=== PATIENT | male | born 1965 | race Caucasian/White ===

== ENCOUNTER 2022-05-24 18:14 | Emergency (ER) | payer OTHER ==
[2022-05-24 18:30] LABS: #Monocytes 0.8 10x3/uL (0.0-1.1); #Neutrophils 10.5 10x3/uL (1.5-8.4); %Basophils 0.2 % (0.0-2.0); %Eosinophils 0.3 % (0.0-6.0); %Lymphocytes 4.1 % (18.0-47.0); %Monocytes 6.5 % (0.0-10.0); %Neutrophils 88.4 % (40.0-75.0); Hemoglobin 12.7 g/dL (13.5-17.5); Mean Corpuscular Hemoglobin 28.5 pg (27.0-33.0); Mean Corpuscular Volume 83.6 fl (81.2-95.1); Mean Platelet Volume 10.2 fl (7.4-10.4); Platelet Count 298 10x3/uL (150-450); RBC Distribution Width 13.8 % (11.5-14.5); Red Blood Cell (RBC) Count 4.46 10x6/uL (4.32-5.72); White Blood Cell (WBC) Count 11.8 10x3/uL (3.5-10.5)
[2022-05-24 18:45] LABS: ALT (SGPT) 36 U/L (8-55); AST (SGOT) 25 U/L (5-34); Albumin 4.2 g/dL (3.5-5.0); Alkaline Phosphatase 92 U/L (40-110); Anion Gap 13 mmol/L (10-20); BUN (Urea Nitrogen) 10 mg/dL (8.4-25.7); Bilirubin, Total 0.6 mg/dL (0.2-1.2); Calc. Creatinine Clearance 0 mL/min (70-130); Calcium 9.3 mg/dL (7.8-10.44); Carbon Dioxide 24 mmol/L (22-29); Chloride 102 mmol/L (98-107); Estimated GFR 91; Globulin 3.3 g/dL (2.4-3.5); Glucose 107 mg/dL (70-105); Protein, Total 7.5 g/dL (6.0-8.3); Sodium 135 mmol/L (136-145)
[2022-05-24] MEDS ORDERED: Acetaminophen 500 MG TAB ONE (19:14)
[2022-05-24] MEDS ORDERED: Cefepime 2 GM VIAL ONE (19:14)
[2022-05-24 19:42] LABS: SARS-CoV-2 NAA Rapid Test Not Detected (NotDetected)
[2022-05-25] MEDS ORDERED: Carvedilol 6.25 MG TAB PO SCH (00:30)
[2022-05-25] MEDS ORDERED: Ketorolac Tromethamine 30 MG/ML VIAL ONE (01:11)
== END 2022-05-25 01:28 | disposition short-term general hospital (02) ==
LOC: CSHERS 18:14 → EEVIPCON 18:14 → CSHERS 05-25 01:28
DX: A41.9 Sepsis, unspecified organism (principal); L03.116 Cellulitis of left lower limb; K21.9 Gastro-esophageal reflux disease without esophagitis; I10 Essential (primary) hypertension
CPT/HCPCS: 36415; 80053; 83605; 84484; 85025; 87040; 93005; 96361; 96365; 96375; J0692; J1885; J3370; U0002

== ENCOUNTER 2024-06-30 20:27 | Emergency (ER) | payer OTHER ==
[2024-06-30] MEDS ORDERED: Aspirin Chewable 81 MG TAB ONE (21:00)
[2024-06-30] MEDS ORDERED: Milk Of Magnesia 30 ML UDCUP ONE (21:00)
[2024-06-30 21:42] LABS: #Basophils 0.02 10x3/uL (0.0-0.2); #Eosinphils 0.01 10x3/uL (0.0-0.5); #Monocytes 1.22 10x3/uL (0.0-1.1); #Neutrophils 9.91 10x3/uL (1.5-8.4); %Basophils 0.2 % (0.0-2.0); %Eosinophils 0.1 % (0.0-6.0); %Monocytes 9.7 % (0.0-10.0); %Neutrophils 79.1 % (40.0-75.0); Hematocrit 44.4 % (38.8-50.0); Hemoglobin 15.1 g/dL (13.5-17.5); Mean Corpuscular Hemoglobin 29.2 pg (27.0-33.0); Mean Corpuscular Volume 85.9 fL (81.2-95.1); Mean Platelet Volume 9.9 fL (7.4-10.4); Platelet Count 423 10x3/uL (150-450); RBC Distribution Width 12.5 % (11.5-14.5); Red Blood Cell (RBC) Count 5.17 10x6/uL (4.32-5.72); White Blood Cell (WBC) Count 12.5 10x3/uL (3.5-10.5)
[2024-06-30 21:50] LABS: ALT (SGPT) 20 U/L (8-55); AST (SGOT) 17 U/L (5-34); Albumin 4.1 g/dL (3.5-5.0); Alkaline Phosphatase 85 U/L (40-110); Anion Gap 15 mmol/L (10-20); BUN (Urea Nitrogen) 15 mg/dL (8.4-25.7); Bilirubin, Total 0.9 mg/dL (0.2-1.2); Calc. Creatinine Clearance 0 mL/min (70-130); Carbon Dioxide 22 mmol/L (22-29); Chloride 98 mmol/L (98-107); Estimated GFR 56; Globulin 3.8 g/dL (2.4-3.5); Glucose 116 mg/dL (70-105); Lipase 20 U/L (8-78); Potassium 4.9 mmol/L (3.5-5.1); Protein, Total 7.9 g/dL (6.0-8.3); Sodium 130 mmol/L (136-145)
[2024-06-30 21:56] LABS: Troponin I 0.015 ng/mL (< 0.028)
== END 2024-06-30 23:30 ==
LOC: CSHERS 20:27
DX: K21.9 Gastro-esophageal reflux disease without esophagitis (principal); I10 Essential (primary) hypertension; Z79.899 Other long term (current) drug therapy
CPT/HCPCS: 36415; 71045; 80053; 83690; 84484; 85025; 93005

== ENCOUNTER 2024-09-28 09:08 | Emergency (ER) | payer OTHER ==
[2024-09-28] MEDS ORDERED: Midazolam HCl 2 mg/2 ml Vial ONE (09:16)
[2024-09-28] MEDS ORDERED: Famotidine/PF 20 mg/2ml Vial ONE (09:16)
[2024-09-28] MEDS ORDERED: Ketorolac Tromethamine 30 MG (1 mL) VIAL ONE (09:16)
[2024-09-28 10:15] LABS: #Basophils 0.03 10x3/uL (0.0-0.2); #Eosinophils 0.09 10x3/uL (0.0-0.5); #Monocytes 0.81 10x3/uL (0.0-1.1); #Neutrophils 5.77 10x3/uL (1.5-8.4); %Basophils 0.4 % (0.0-2.0); %Eosinophils 1.1 % (0.0-6.0); %Lymphocytes 15.8 % (18.0-47.0); %Monocytes 10.1 % (0.0-10.0); %Neutrophils 72.1 % (40.0-75.0); Hematocrit 38.4 % (38.8-50.0); Hemoglobin 12.9 g/dL (13.5-17.5); Mean Corpuscular HGB CONC 33.6 g/dL (32.0-36.0); Mean Corpuscular Hemoglobin 28.9 pg (27.0-33.0); Mean Corpuscular Volume 86.1 fL (81.2-95.1); Platelet Count 326 10x3/uL (150-450); RBC Distribution Width 12.6 % (11.5-14.5); Red Blood Cell (RBC) Count 4.46 10x6/uL (4.32-5.72)
[2024-09-28 10:30] LABS: ALT (SGPT) 20 U/L (8-55); AST (SGOT) 20 U/L (5-34); Albumin 3.6 g/dL (3.5-5.0); Alkaline Phosphatase 73 U/L (40-110); Anion Gap 16 mmol/L (10-20); BUN (Urea Nitrogen) 11 mg/dL (8.4-25.7); Bilirubin, Total 0.6 mg/dL (0.2-1.2); Calc. Creatinine Clearance 0 mL/min (70-130); Calcium 9.1 mg/dL (7.8-10.44); Carbon Dioxide 20 mmol/L (22-29); Chloride 104 mmol/L (98-107); Estimated GFR 89; Globulin 2.9 g/dL (2.4-3.5); Glucose 93 mg/dL (70-105); Lipase 30 U/L (8-78); Protein, Total 6.5 g/dL (6.0-8.3); Sodium 136 mmol/L (136-145)
[2024-09-28 10:33] LABS: D-Dimer Test 0.48 mcg/mL (0.19-0.50); Prothrombin Time 11.3 sec (9.5-12.1)
[2024-09-28 10:37] LABS: Critical Call Chem Troponin I NUR.NM16 READ BACK RESULT AT 1037; Troponin I 0.276 ng/mL (< 0.028)
[2024-09-28] MEDS ORDERED: Morphine 4 MG/ML VIAL ONE (10:42)
[2024-09-28 12:20] LABS: Troponin I 0.503 ng/mL (< 0.028)
[2024-09-28] MEDS ORDERED: Heparin 25,000 units/D5W 500 ML ONE (12:30)
== END 2024-09-28 13:24 | disposition short-term general hospital (02) ==
LOC: EEVIPCON 09:08 → CSHERS 09:08
DX: R07.2 Precordial pain (principal); R79.89 Other specified abnormal findings of blood chemistry; R00.0 Tachycardia, unspecified; I10 Essential (primary) hypertension; K21.9 Gastro-esophageal reflux disease without esophagitis; I73.9 Peripheral vascular disease, unspecified; Z79.899 Other long term (current) drug therapy
CPT/HCPCS: 36415; 36416; 71045; 80053; 83690; 84484; 85025; 85379; 85610; 85730; 93005; J1644; J1885; J2250; J2272; J3490